=== PATIENT | female | born 1975 | race American Indian/Alaskan Native ===

== ENCOUNTER 2017-10-15 12:03 | Outpatient (CLI) | payer OTHER ==
[~2017-10-15 12:03] MED LIST: FIORICET TABLET1 TAB; KETO10TA2 PO; SYNTHROID50 MCG; SYNTHROID50 MCG PO
== END 2017-10-15 12:10 | disposition home or self-care (01) ==
LOC: LAB 12:03
DX: D68.8 Other specified coagulation defects (principal)

== ENCOUNTER → 2019-01-02 | Emergency (ER) | payer OTHER ==
[~2019-01-02] VITALS: Ht 162.6 cm; Wt 83.9 kg
[~2019-01-02] MED LIST changes: +FIORICET
== END | disposition home or self-care (01) ==
LOC: ER 06:55
DX: K52.9 Noninfective gastroenteritis and colitis, unspecified (principal); E86.0 Dehydration

== ENCOUNTER 2019-07-17 19:08 | Emergency (ER) | payer OTHER ==
[~2019-07-17] VITALS: Ht 162.6 cm; Wt 81.2 kg
[2019-07-17] MEDS ORDERED: MAALOX ADVANCE355 ML PO (23:52)
[2019-07-17] MEDS ORDERED: AIRBORNE EFFER1 EACH PO (23:52)
[2019-07-17] MEDS ORDERED: KETO10TA2 PO (23:52)
== END 2019-07-18 00:33 | disposition home or self-care (01) ==
LOC: ER 19:08
DX: B08.4 Enteroviral vesicular stomatitis with exanthem (principal); J31.2 Chronic pharyngitis

== ENCOUNTER 2022-01-13 17:30 | Emergency (ER) | payer OTHER ==
[~2022-01-13] VITALS: Ht 162.6 cm; Wt 96.2 kg
[~2022-01-13 17:30] MED LIST changes: +AIRBORNE EFFER1 EACH PO; +MAALOX ADVANCE355 ML PO
[2022-01-13] MEDS ORDERED: PEPCID AC20 MG PO (17:39)
[2022-01-13] MEDS ORDERED: NEXIUM40 M1 (17:39)
[2022-01-13] MEDS ORDERED: COZAAR25 MG (17:39)
[2022-01-13] MEDS ORDERED: LASIX20 MG PO (19:09)
== END 2022-01-13 19:12 | disposition home or self-care (01) ==
LOC: ER 17:30
DX: R60.0 Localized edema (principal); Z20.822 Contact with and (suspected) exposure to COVID-19

== ENCOUNTER 2022-02-10 12:00 | Emergency (ER) | payer OTHER ==
[~2022-02-10] VITALS: Ht 162.6 cm; Wt 99.8 kg
[~2022-02-10 12:00] MED LIST changes: +COZAAR25 MG; +LASIX20 MG PO; +NEXIUM40 M1; +PEPCID AC20 MG PO
[2022-02-10] MEDS ORDERED: PREVACID30 MG PO (13:35)
== END 2022-02-10 14:33 | disposition home or self-care (01) ==
LOC: ER 12:00
DX: J03.90 Acute tonsillitis, unspecified (principal); J01.90 Acute sinusitis, unspecified

== ENCOUNTER 2024-04-26 05:10 | Day surgery (SDC) | payer OTHER ==
[2024-04-20 12:53] LABS: HEMATOCRIT 38.8 % (36.0-45.00); MEAN CELL VOLUME 82.4 fL (80.00-100.00); MEAN CORPUSCULAR HEMOGLOBIN 27.7 pg (27.00-32.0); MEAN CORPUSCULAR HGB CONC 33.6 g/dl (32.0-36.0); PLATELET COUNT 315 K/uL (150-450); RED BLOOD COUNT 4.71 M/uL (4.00-6.00); RED CELL DISTRIBUTION WIDTH 14.3 % (11.5-14.5)
[2024-04-20 13:26] LABS: ALBUMIN 3.7 gm/dL (3.4-5.0); BILIRUBIN TOTAL 0.47 mg/dL (0.3-1.2); CALCIUM 9.2 mg/dL (8.5-10.1); CREATININE SERUM 0.68 mg/dL (0.55-1.02); GFR 92.35; GLOBULINA 3.6 G/DL (2.4-3.5); POTASSIUM 4.39 mEq/L (3.5-5.1); TOTAL PROTEIN 7.3 gm/dL (6.4-8.2)
[2024-04-20 13:33] LABS: INR 0.99; PARTIAL THROMBOPLASTIN TIME 23.9 SECONDS (22.0-34.0)
[~2024-04-26 05:10] MED LIST changes: +AVAPRO300 MG PO; +COZAAR25 MG PO; +HYDROXYCHLOROQ200 MG PO; +PLAQUENIL PO; +PREVACID30 MG PO; +TUSNEL LIQUID178 ML PO; +XOPENEX0.63 MG/3 IH; +ZITHROMAX500 MG PO
[2024-04-26] MEDS ORDERED: POVIDONE-IODINE 118 ML BOTT TOP ONE (07:20)
[2024-04-26] MEDS ORDERED: MORPHINE SULFATE 4 MG/ML VIAL IV PRN (08:15)
[2024-04-26] MEDS ORDERED: PROMETHAZINE HCL 50 MG/ML AMPUL IM ONE ×2 (08:15→09:44)
[2024-04-26] MEDS ORDERED: ONDANSETRON HCL 2 MG/ML VIAL ONE (09:31)
[2024-04-26] MEDS ORDERED: DEXAMETHASONE SODIUM PHOSP/PF 10 MG/ML VIAL ONE (09:44)
[2024-04-26] MEDS ORDERED: METOCLOPRAMIDE HCL 5 MG/ML VIAL ONE (09:44)
== END 2024-04-26 12:40 | disposition home or self-care (01) ==
LOC: CIR.AMB 05:10
PROVIDERS: ATTEND Obstetrics & Gynecology
DX: N84.0 Polyp of corpus uteri (principal); I10 Essential (primary) hypertension; J45.909 Unspecified asthma, uncomplicated; M19.90 Unspecified osteoarthritis, unspecified site; K29.70 Gastritis, unspecified, without bleeding; G43.909 Migraine, unspecified, not intractable, without status migrainosus